=== PATIENT | male | born 1980 | race Caucasian/White ===

== ENCOUNTER → 2024-05-09 08:41 | Outpatient (REF) | payer BC, SELFPAY ==
[2024-05-09 09:31] LABS: % Basophils 0.8 % (0-2); % Immature Granulocytes 0.4 % (0-0.5); % Monocytes 7.7 % (1.7-9.3); % Neutrophils 66.1 % (42.2-75.2); Absolute Eosinophils 0.1 10^3/uL (0-0.7); Absolute Lymphocytes 1.2 10^3/uL (1.2-3.4); Absolute Monocytes 0.4 10^3/uL (0.1-0.6); Absolute Neutrophils 3.2 10^3/uL (1.4-6.5); Hematocrit 45.2 % (39.0-52.0); Mean Corp Hgb Conc. 35.4 g/dL (33.0-37.0); Mean Corpuscular Hgb 31.4 pg (27.0-31.0); Mean Corpuscular Volume 88.8 fL (80.0-94.0); Mean Platelet Volume 9.9 fL (7.4-10.4); Nucleated Red Blood Cells % 0 % (-); Platelet Count 184 10^3/uL (130-400); Red Blood Cell Count 5.09 10^6/uL (4.70-6.10); Red Cell Dist. Width 11.9 % (11.5-14.5); White Blood Cell Count 4.8 10^3/uL (4.8-10.8)
[2024-05-09 10:02] LABS: Urine Albumin Negative (Neg - Trace); Urine Bilirubin Negative (Negative); Urine Character Clear (Clear); Urine Color Yellow; Urine Glucose Negative (Negative); Urine Ketone Negative (Negative); Urine Leukocyte Negative (Negative); Urine Nitrite Negative (Negative); Urine Occult Blood Negative (Negative); Urine Specific Gravity 1.015 (<1.030); Urine Urobilinogen Negative (Neg - 1+)
[2024-05-09 10:09] LABS: ALT (SGPT) 39 U/L (0-50); AST (SGOT) 30 U/L (17-59); Albumin 5.1 g/dl (3.5-5.0); Alkaline Phosphatase 74 U/L (38-126); Blood Urea Nitrogen 16 mg/dl (9-20); Calcium 10.3 mg/dl (8.4-10.2); Carbon Dioxide 28 mmol/L (22-30); Chloride 101 mmol/L (98-107); Glucose 97 mg/dl (70-99); Potassium 4.2 mmol/L (3.5-5.1); Sodium 144 mmol/L (135-145); Total Protein 7.5 g/dl (6.3-8.2); eGFR > 60.00
[2024-05-09 10:33] LABS: TSH Reflex To Free T4 1.78 uIU/ml (0.47-4.68)
[2024-05-09 10:52] LABS: Hepatitis C Antibody Negative (Negative)
== END ==
LOC: REG 08:41
PROVIDERS: ATTENDING PHYSICIAN Internal Medicine Cardiovascular Disease; FAMILY PHYSICIAN Family Medicine
DX: Z13.9 Encounter for screening, unspecified (principal)
CPT/HCPCS: 36415; 80053; 81003; 84443; 85025; 86803

== ENCOUNTER → 2024-05-14 06:43 | Outpatient (REF) | payer BC, SELFPAY ==
[2024-05-14 08:09] LABS: HDL Cholesterol 69 mg/dl; LDL Cholesterol, Calculated 106 mg/dl; Total Cholesterol 199 mg/dl (50-199); Triglyceride 123 mg/dl (10-149); Very Low Density Lipoprotein 24 mg/dl (0-30)
== END ==
LOC: REG 06:43
PROVIDERS: ATTENDING PHYSICIAN Internal Medicine Interventional Cardiology; FAMILY PHYSICIAN Family Medicine
DX: Z13.220 Encounter for screening for lipoid disorders (principal)
CPT/HCPCS: 36415; 80061

== ENCOUNTER 2024-12-16 18:10 | Observation (INO) | payer BC, SELFPAY ==
[2024-12-16] VITALS (18 sets, daily range): BP systolic 134–183; BP diastolic 80–102; BMI 28.6; BMI 27.2
--- NOTE | 2024-12-16 13:23 | ED.CVA ---
History of Present Illness
General
Chief Complaint: CVA/TIA Symptoms
Source: patient
Exam Limitations: none
Time Seen by Provider: 12/16/24 13:22
Onset of Stroke Symptoms
Onset of symptoms known: No
Time pt last seen normal is known: No
History of Present Illness
History of Present Illness:
44-year-old male with history of hypertension [employer] employee here presents from the [employer] when he was working with an episode of time where he was having trouble getting a word out. He has been having palpitations on and off for the past 2
weeks. He states this may have coincided with a trip to [place] where he was drinking alcohol at that trip. He currently denies chest pain. He feels much better since the onset of his symptoms. At some point someone called a stroke alert on him.
He denies headache. He was prescribed amlodipine 5 mg daily but he stopped taking that a couple weeks ago as well. He denies unilateral numbness or weakness.
Phy Exam
Physical Exam
Physical Exam:
General: Well-appearing male no acute respiratory distress
HEENT: Normocephalic atraumatic
Heart: Tachycardic but regular
Lungs: Clear no wheeze
Neurologic exam: Alert and oriented no facial asymmetry no dysarthria or aphasia. No unilateral weakness no drift. Vision intact good sensation bilateral lower extremities
Extremities: No cyanosis or edema
Skin: warm, no rash
Course
Orders/Labs/Results
Orders:
Orders
12/16/24
Electrocardiogram (*1) Stat
Other Reason for Exam: EVAL
Comment: DONE IN [facility]
12/16/24 13:20
Electrocardiogram (*1) Urgent
Reason for Study: Other
Other Reason for Exam: Possible Stroke
Cardiac Monitoring- Treatment ONCE
IV Insert/Care/Rem.- Treatment PRN
Vital Signs As Directed
Frequency: Other
Weight As Directed
Frequency: Once
Comment: ZERO STRETCHER SCALE FOR ACCURATE WEIGHT
12/16/24 13:21
CT HEAD STROKE ALERT W/o Cont Urgent
Comment:
Reason For Exam: aphasia
EKG- Treatment ONCE
12/16/24 13:22
Complete Blood Count/With Diff Urgent
Comprehensive Metabolic Panel Urgent
Troponin I Urgent
12/16/24 13:43
PTT Urgent
Prothrombin Time Urgent
12/16/24 13:46
TSH Reflex To Free T4 Urgent
12/16/24 14:14
CT Head & Neck Angio W/wo IV Urgent
Comment:
Reason For Exam: stenosis
12/16/24 15:13
Urine Drug Abuse Screen Routine
MRI Brain [MR Brain Without Contrast] Routine
Comment:
Reason For Exam: TIA
OK for patient to be off Cardiac Monitoring for MRI: No
Recent pill cam endoscopy?: No
12/16/24 15:22
Hemoglobin A1c [Glycohemoglobin (HgbA1c)] Routine
Lipid Profile [Cardiovascular Evaluation] Routine
Abnormal Lab Results
12/16/24
13:22
MCH 32.1 H pg
(27.0-31.0)
Glucose 109 H mg/dl
(70-99)
ALT 55 H U/L
(0-50)
12/16/24 13:22
12/16/24 13:22
Vital Signs
Initial and Last Documented VS:
Initial Vital Signs
Temp Pulse Resp BP Pulse Ox
98.7 F 102 18 183/102 98
12/16/24 13:31 12/16/24 13:31 12/16/24 13:31 12/16/24 13:31 12/16/24 13:31
Last Documented Vital Signs
Temp Pulse Resp BP Pulse Ox
98.7 F 79 18 154/98 97
12/16/24 13:31 12/16/24 14:45 12/16/24 14:45 12/16/24 14:45 12/16/24 14:45
MDM/Problems Addressed
Differential Diagnosis Includes:
Patient was having trouble speaking earlier today this lasted a couple minutes and resolved. He is back to his baseline. He was having palpitations. A coworker describes that he was very pale during this episode. Currently normal neurologic
exam: Called as a stroke alert seen by neurology at bedside. Currently in CAT scan.
*Critical Care Note
Total Time (30-74mins, 75-104mins- exclusive of procedures): Not Applicable
Update Note
Update Note:
CT scan of head negative for acute finding. Seen by neurology who recommended CT angio of the head and neck. Patient has had no further symptoms since arrival. Blood pressure and heart rate have decreased since arrival. Neurology saw patient and
recommends admission for MRI secondary to episode of aphasia. Not a TNK candidate.
ED Attending Note
-
Portions of this chart may have been created with voice recognition software.� Occasional wrong word or��sound alike� substitutions may have occurred due to the inherent limitations of voice recognition software.
Discharge Plan
Departure
Patient Disposition: Admit
Date of Disposition: 12/16/24
Time of Disposition: 16:12
Presentation/result/management discussed w/ accepting MD/DO: Hospitalist
Discharge Problem:
Episode of aphasia
Referrals:
Vijay Reyna DO [Family Provider] -
Interventions
Interventions:
*Risk Screen - Suicide Last Done: 12/16/24 13:31
*General Assessment Last Done: 12/16/24 13:31
*Neglect/Abuse Screening Last Done: 12/16/24 13:31
*ED- Fall Risk Assessment Last Done: 12/16/24 13:31
*ED COVID-19 Vaccine History Last Done: 12/16/24 13:31
ED- Pulmonary Assessment Last Done: 12/16/24 13:37
ED- Neurological Assessment Last Done: 12/16/24 13:37
ED- Cardiac Assessment Last Done: 12/16/24 13:37
Discharge Date and Time
Print Language: GRENADIAN
--- NOTE | 2024-12-16 13:26 | CON.NEURO ---
Consultation
Order
Date of Consultation: 12/16/24
Requesting Provider:
Reason for Consult: Stroke alert
Called in: 1:12 PM
Neurology Consultation Note.
HPI: This is a 44-year-old man who developed transient expressive language difficulties while at work today. The patient reports experiencing palpitations for the last few weeks. Today, while talking to a colleague, he noticed difficulty getting
words out, which caused him significant anxiety due to concerns about a possible stroke.
Mr. Regalado states that he had been drinking alcohol heavily during a recent trip to [place], which coincided with the onset of his symptoms. The patient reports that he stopped taking his regular medications about a month ago due to 'laziness'.
He denies any current chest pain, weakness or numbness.
Mr. Regalado feels 'a little post-anxious'. No similar episodes in the past
ER VS: 183/102, 102, afebrile
Tele: Tachycardic
EKG: NSR, QTc Int : 449 ms
PDMP:none
Labs: Normal WBCs, platelets, sodium, glucose�109, ALT�55
CT head wo contrast-no acute abnormalities
PMH:HTN, GERD
PSH: Left rotator cuff repair
SH: Works at [employer], social alcohol use
FH: No family history of stroke in the
All:NKDA
ROS: Positive for transient aphasia, palpitations
NIH Stroke Scale
1A Level of Consciousness: 0/3
1B LOC Questions: 0/2
1C LOC Commands: 0/2
2 Best Gaze: 0/2
3 Visual: 0/3
4 Facial Palsy: 0/3
5A Motor Arm LEFT: 0/4
5B Motor Arm RIGHT: 0/4
6A Motor Leg LEFT: 0/4
6B Motor Leg RIGHT: 0/4
7 Limb Ataxia: 0/2
8 Sensory: 0/2
9 Best Language: 0/3
10 Dysarthria: 0/2
11 Extinction/Inattention: 0/2
Total NIHSS: 0
Assessment and Plan:
I. Transient aphasia. Not a candidate for IV TNK due to transient nature of symptoms.
II. Hypertensive emergency
III. Sinus tachycardia
- Continue Telemetry monitoring
- DAPT for 21 days
- Brain MRI without valeria
- Please follow-up result of CTA head and neck
- Please follow-up count, CBC, TFTs, urine tox
- May consider EEG
I personally reviewed all radiology and labs along with past medical records pertinent to current medical problems. Total time spent in patient care is 40 minutes.
Thank you for allowing us to participate in the care of this patient. We will continue to follow. Please do not hesitate to contact us with any questions or concerns.
Subjective/Objective
Subjective Data
Date of Service: December 16, 2024
Objective Data
Patient Allergies
No Known Allergies Allergy (Unverified 08/16/20 14:54)
[2024-12-16 13:33] LABS: % Basophils 0.5 % (0-2); % Eosinophils 0.5 % (0-6); % Immature Granulocytes 0.4 % (0-0.5); % Lymphocytes 24.1 % (20.5-51.1); % Monocytes 6.8 % (1.7-9.3); % Neutrophils 67.7 % (42.2-75.2); Absolute Lymphocytes 1.9 10^3/uL (1.2-3.4); Absolute Monocytes 0.5 10^3/uL (0.1-0.6); Absolute Neutrophils 5.3 10^3/uL (1.4-6.5); Hematocrit 46.8 % (39.0-52.0); Hemoglobin 16.8 g/dL (13.0-18.0); Mean Corp Hgb Conc. 35.9 g/dL (33.0-37.0); Mean Corpuscular Hgb 32.1 pg (27.0-31.0); Mean Corpuscular Volume 89.3 fL (80.0-94.0); Mean Platelet Volume 9.1 fL (7.4-10.4); Nucleated Red Blood Cells % 0 % (-); Platelet Count 232 10^3/uL (130-400); Red Blood Cell Count 5.24 10^6/uL (4.70-6.10); Red Cell Dist. Width 12.8 % (11.5-14.5); White Blood Cell Count 7.8 10^3/uL (4.8-10.8)
[2024-12-16 13:44] LABS: ALT (SGPT) 55 U/L (0-50); AST (SGOT) 28 U/L (17-59); Albumin 4.7 g/dl (3.5-5.0); Alkaline Phosphatase 72 U/L (38-126); Blood Urea Nitrogen 18 mg/dl (9-20); Calcium 10.1 mg/dl (8.4-10.2); Carbon Dioxide 26 mmol/L (22-30); Chloride 103 mmol/L (98-107); Estimated Creatinine Clearance 110 ml/min; Glucose 109 mg/dl (70-99); Potassium 3.6 mmol/L (3.5-5.1); Sodium 139 mmol/L (135-145); Total Bilirubin 0.9 mg/dl (0.2-1.3); Total Protein 7.2 g/dl (6.3-8.2); eGFR > 60.00
[2024-12-16 13:55] LABS: Troponin I < 0.012 ng/ml
[2024-12-16 14:19] LABS: INR 0.99; PT 13.4 Sec (11.4-14.6)
[2024-12-16 14:20] LABS: APTT 28.1 Sec (23.4-35.0)
[2024-12-16 14:53] LABS: TSH Reflex To Free T4 2.04 uIU/ml (0.47-4.68)
[2024-12-16 15:50] LABS: HDL Cholesterol 64 mg/dl; LDL Cholesterol, Calculated 91 mg/dl; Total Cholesterol 183 mg/dl (50-199); Triglyceride 141 mg/dl (10-149); Very Low Density Lipoprotein 28 mg/dl (0-30)
--- NOTE | 2024-12-16 17:25 | HPS.HSE ---
Family Physician
-
Family Physician: Vijay Reyna
Chief Complaint
-
Expressive Aphasia
History of Present Illness
Patient is a 44 y/o male past medical history of hypertension who presents with episode of expressive aphasia. Will speaking with a colleague today he developed a transient episode of expressive aphasia that was very brief lasting about 5 seconds.
Just after the event he was found to have very elevated blood pressure SBP>200. He reports feeling very anxious following the event. Patient reports he previously was prescribed amlodipine but stopped taking it about 6 weeks ago. He reports daily
palpitations for the last two weeks since returning from a trip to [place]. He denies chest pain. He denies focal numbness, tingling or weakness.
Medical History
Past Medical History
Past Medical History: Reports Other
Additional Past Medical History:
Essential Hypertension
Past Surgical History: Reports Other
Additional Past Surgical History:
Left Rotator Cuff
Social History
Tobacco: Former Smoker (Quit about 15-20 years ago (5 pack year history))
Alcohol: Occasional
Drug: None
Family History
Family History: Other (No family history of stroke)
Allergies / Home Medications
Allergies reflects when Allergies were last updated in [email or web address].
Home Medications with original date entered in [email or web address]
Allergy/Medication List:
Allergies
Allergy/AdvReac Type Severity Reaction Status Date / Time
No Known Allergies Allergy Verified 12/16/24 13:41
Home Medications
No Meds [No Current Medications] 12/16/24
Review of Systems
-
A 12 point ROS was completed and negative except as noted: Yes
Constitutional: Denies Fever
Respiratory: Denies Cough or Trouble Breathing
Cardiac: Reports Palpitations
Abdomen/GI: Denies Abdominal Pain, Nausea, Vomiting or Diarrhea
Neurological: Reports See HPI
Physical Exam
Vital Signs
Vital Signs
Temp Pulse Resp BP Pulse Ox
98.7 F 80 19 134/94 97
12/16/24 13:31 12/16/24 17:15 12/16/24 17:15 12/16/24 17:15 12/16/24 16:15
Physical Exam
General: Comfortable and Conversant
HEENT: Anicteric and Moist mucous membranes
Respiratory: Clear and Non Labored Respirations
Cardiac: S1/S2 and Regular Rhythm
GI: Soft and Non Tender
Rectal: Deferred by Provider
Musculoskeletal: No Clubbing and No Cyanosis
Skin: Warm and Dry
Neuro: Awake, Alert, Oriented and No Motor Deficits; No Slurred Speech or Facial Droop
Psych: Anxious
Laboratory Results
-
12/16/24 13:22
12/16/24 13:22
Laboratory Results
PT 13.4 Sec (11.4-14.6) 12/16/24 13:43
INR 0.99 12/16/24 13:43
APTT 28.1 Sec (23.4-35.0) 12/16/24 13:43
Total Bilirubin 0.9 mg/dl (0.2-1.3) 12/16/24 13:22
AST 28 U/L (17-59) 12/16/24 13:22
ALT 55 U/L (0-50) H 12/16/24 13:22
Alkaline Phosphatase 72 U/L (38-126) 12/16/24 13:22
Troponin I < 0.012 ng/ml 12/16/24 13:[address]:
No acute intracranial abnormality.
Head/Neck CT:
No significant vascular occlusion, aneurysm or dissection.
Data Reviewed
-
CT Scan: Report Reviewed by me
Lab Data: Labs Reviewed by me
Impression/Plan
-
Transient Expressive Aphasia
-Neurology Consulted
-Start Aspirin and Plavix
-Check Brain MRI
-Check HgbA1c and Lipid Panel
Uncontrolled Hypertension
-BP improving without intervention
-Plan to resume amlodipine 5mg Daily 24 hour after onset of symptoms to allow for permissive hypertension in setting of possible TIA/CVA
Palpitations
-Monitor on Telemetry
Anxiety
-Consider psych referral as outpatient
DVT proph: SCDs
Code Status: Full Code
--- NOTE | 2024-12-16 17:44 | W.PN.UPDATE ---
Update Note
Progress Note Update
I saw and examined the patient.
The MACHINIST JOB SETTER or PA's note was reviewed and I agree with the note.
Comment:
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
difficulty getting words out.� This lasted very briefly, and only could not get out 1 sentence. This subsequently caused sense of anxiety for possible stroke.� Patient does acknowledge having palpitations for the last few weeks.� Of note had a
recent trip to [place], was drinking alcohol heavily.� Patient otherwise denies fever, chills, nausea, vomiting, dysuria.� Patient's blood pressure 183/102, pulse 102, afebrile initially in the ED.� Upon admission blood pressure 134/94, pulse 80,
respiratory rate 19, temperature 98.7.� LDL 91, TSH within normal limits.� CT head and neck with no significant vascular occlusion, aneurysm or dissection.� CT head with no acute intracranial abnormality.� Plan�neurology consult.� Hemoglobin A1c.�
Continue DAPT for 21 days.� Continue telemetry monitoring.� MRI brain without valeria.� May consider EEG as per neurology. Trops. Suspect consideration of anxiety that has lead to symptoms.
[2024-12-16 17:59] LABS: Magnesium 2.2 mg/dl (1.6-2.3)
[2024-12-16] MEDS: PLAVIX 75 MG PO (18:28)
[2024-12-16 20:28] LABS: Troponin I 0.019 ng/ml
--- NOTE | 2024-12-16 20:47 | PTCARENOTE ---
Received patient from ED. SR on the monitor, HR in the 70s. VSS on room air. Alert and oriented. NIH 0. Oriented pt to room. No complaints from pt at this time, call duran within reach.
[2024-12-17 02:03] VITALS: BP 121/83
[2024-12-17 03:16] LABS: Blood Urea Nitrogen 15 mg/dl (9-20); Calcium 9.4 mg/dl (8.4-10.2); Carbon Dioxide 21 mmol/L (22-30); Chloride 106 mmol/L (98-107); Estimated Creatinine Clearance > 125 ml/min; Glucose 94 mg/dl (70-99); Potassium 3.7 mmol/L (3.5-5.1); Sodium 140 mmol/L (135-145); eGFR > 60.00
[2024-12-17 03:29] LABS: Troponin I < 0.012 ng/ml
[2024-12-17 06:55] VITALS: BP 145/104
[2024-12-17 07:45] VITALS: BP 144/110
[2024-12-17 07:47] VITALS: BP 160/96
[2024-12-17] MEDS: PLAVIX 75 MG PO (07:53)
[2024-12-17] MEDS: ASPIR LOW (ENTERIC COATED) 81 MG PO (07:53)
--- NOTE | 2024-12-17 08:05 | PTCARENOTE ---
Assumed plan of care of pt. BP 141/110, 160/96. Pt asymptomatic. Neuro checks negative. Will notify MD of current vitals. Will monitor.
[2024-12-17] MEDS: NORVASC 5 MG PO (08:48)
[2024-12-17 08:50] VITALS: BP 143/87
[2024-12-17 09:15] VITALS: BP 143/87; PULSE 72
--- NOTE | 2024-12-17 09:33 | PTOTSP ---
PATIENT ABLE TO MOBILIZE INDPENDENTLY ON LEVEL SURFACES AND ELEVATIONS WITHOUT COMPLAINTS OF DIZZINESS OR PALPITATIONS. NO DEFICITS NOTED. PATIENT REQUIRING NO FURTHER ACUTE CARE SKILLED P.T. SERVICES AT THIS TIME.
--- NOTE | 2024-12-17 09:49 | PTOTSP ---
Speech Therapy Evaluation:
Pt presents with functional oropharyngeal swallow. No overt s/sx of aspiration across trials. No hx of ST, dysphagia, or PNA. Head/Brain imaging negative. Pt on room air, WBC WNL, and pt passed 3oz swallow screen.
Recommend:
1. Continue IDDSI Level 7 (regular) solids and thin liquids
2. Medications as tolerated
3. General aspiration and reflux precautions
4. LIBRARY CIRCULATION TECHNICIAN to s/o - please reconsult if indicated
--- NOTE | 2024-12-17 11:03 | W.PN.HOSP.TC ---
Today's Communication/Plan
-
asa
amlodipine
f/u neuro, pcp, psych outpatient
Assessment / Plan
Assessment / Plan
Physical Exam
General: Comfortable and Conversant
HEENT: Anicteric and Moist mucous membranes
Respiratory: Clear and Non Labored Respirations
Cardiac: S1/S2 and Regular Rhythm
GI: Soft and Non Tender
Rectal: Deferred by Provider
Musculoskeletal: No Clubbing and No Cyanosis
Skin: Warm and Dry
Neuro: Awake, Alert, Oriented and No Motor Deficits; No Slurred Speech or Facial Droop
Psych: Anxious
Transient Expressive Aphasia
-N?TIA v Anxiety
- MRI negative for acute pathology
-Can continue ASA for now until neuro follow up in setting of hypertension
-F/u LDL outpatient
- F/u neurology outpatient
-a1c 5
Uncontrolled Hypertension, non compliant
-Restart amlodipine
Anxiety
f/u with psych outpatient
Palpitations
-resolved
-probable anxiety
-see as above
DVT proph: SCDs
Code Status: Full Code
More than 30 minutes spent in discharge including
Final examination of the patient
Summarizing hospital stay
Instructions for continuing care to all relevant caregivers
Preparation of discharge records, prescriptions, and referral forms
Total time spent (in minutes): 36
Anticipated Discharge: Today
Subjective/Interval History
-
Date of Service: December 17, 2024
no acute events; hr and bp improved
Objective Data
-
Labs:
Laboratory Results
12/17/24
02:09
Sodium 140
Potassium 3.7
Chloride 106
Carbon Dioxide 21 L
BUN 15
Creatinine 0.7
Glucose 94
Calcium 9.4
Vital Signs:
Vital Signs
Temp Pulse Resp BP Pulse Ox
98.3 F 80 18 143/87 98
12/17/24 07:59 12/17/24 08:48 12/17/24 07:59 12/17/24 08:48 12/17/24 07:59
Review of Systems
-
History Source: Patient
All other systems: Not reviewed unless documented
Data Reviewed
-
CT Scan: Report Reviewed by me
MRI: Report Reviewed by me
Labs: Labs Reviewed by me
--- NOTE | 2024-12-17 11:11 | W.DS.TRANS ---
DC Summary - Quality Assurance Engineer
-
Discharge Instructions:
Discharge Diagnosis/Procedures TIA v anxiety
Diet Low Cholesterol,Low Fat
Activity As tolerated
Blood Work LFTs in 1 week with pcp (had mildly elevated ALT
); also can follow up LDL outpatient
Instructions:
Stand-Alone Forms:
Changes to Home Medications: Yes
Discharge Medications:
DC Medications w/original date entered in [employer]
amlodipine 5 mg tablet 5 mg PO DAILY 30 days #30 tabs 12/17/24
aspirin 81 mg tablet,delayed release 81 mg PO DAILY 30 days #30 tabs 12/17/24
Home Medication Changes
amlodipine 5 mg tablet 5 mg PO DAILY 30 days #30 tabs 12/17/24
aspirin 81 mg tablet,delayed release 81 mg PO DAILY 30 days #30 tabs 12/17/24
Pending Results: No
--- NOTE | 2024-12-17 11:11 | CM ---
CM following for DC planning needs.
Met w/ patient at bedside to complete initial assessment.
Pt. resides w/ spouse + family. He is completely indep. prior to admission, works as a Tab Cutter RN @ .
Reviewed OBS status; OBS letter provided.
DC plan is for home, no needs.
== END 2024-12-17 11:55 | disposition home or self-care (01) ==
LOC: IVU 18:10
PROVIDERS: Physician Assistant; Physician Assistant Medical; ADMITTING PHYSICIAN Internal Medicine; EMERGENCY PHYSICIAN Student in an Organized Health Care Education/Training Program; FAMILY PHYSICIAN Family Medicine; OTHER PHYSICIAN Psychiatry & Neurology Neurology
DX: G45.9 Transient cerebral ischemic attack, unspecified (principal); R47.01 Aphasia; I16.1 Hypertensive emergency; Z87.891 Personal history of nicotine dependence; I10 Essential (primary) hypertension; R00.2 Palpitations; F41.9 Anxiety disorder, unspecified
CPT/HCPCS: 70450; 70496; 70498; 70551; 80048; 80053; 80061; 83036; 83735; 84443; 84484; 85025; 85610; 85730; 92610; 93005; 97162; 97166; 99285; Q9967

== ENCOUNTER → 2025-05-15 10:04 | Outpatient (REF) | payer BC, SELFPAY ==
[2025-05-15 10:35] LABS: Urine Character Clear (Clear)
[2025-05-15 10:45] LABS: Hematocrit 46.1 % (39.0-52.0); Hemoglobin 16.3 g/dL (13.0-18.0); Mean Corp Hgb Conc. 35.4 g/dL (33.0-37.0); Mean Corpuscular Volume 88.1 fL (80.0-94.0); Nucleated Red Blood Cells % 0 % (-); Platelet Count 187 10^3/uL (130-400); Red Cell Dist. Width 12.1 % (11.5-14.5); Urine Red Blood Cell 0-2 /HPF (0-2); Urine Squamous Cell 0-2 /LPF (Few); Urine White Cell 0-2 /HPF (0-5)
[2025-05-15 11:20] LABS: Blood Urea Nitrogen 16 mg/dl (9-20); Calcium 10.4 mg/dl (8.4-10.2); Carbon Dioxide 26 mmol/L (22-30); Chloride 104 mmol/L (98-107); Glucose 95 mg/dl (70-99); HDL Cholesterol 67 mg/dl; LDL Cholesterol, Calculated 114 mg/dl; Potassium 4.7 mmol/L (3.5-5.1); Sodium 139 mmol/L (135-145); Very Low Density Lipoprotein 9 mg/dl (0-30); eGFR > 60.00
[2025-05-15 11:39] LABS: TSH 1.82 uIU/ml (0.47-4.68)
== END ==
LOC: REG 10:04
PROVIDERS: ATTENDING PHYSICIAN Nurse Practitioner; FAMILY PHYSICIAN Family Medicine
DX: I10 Essential (primary) hypertension (principal)
CPT/HCPCS: 36415; 80048; 80061; 81003; 81015; 84443; 85025

== ENCOUNTER → 2025-05-27 07:23 | Outpatient (REF) | payer BC, SELFPAY ==
[2025-05-27 09:10] LABS: Vitamin D, 25-OH*** 49.9 ng/mL (30-80)
[2025-05-27 09:42] LABS: Calcium 10.0 mg/dl (8.4-10.2)
== END ==
LOC: REG 07:23
PROVIDERS: ATTENDING PHYSICIAN Family Medicine
DX: E83.52 Hypercalcemia (principal)
CPT/HCPCS: 36415; 82306; 83970

== ENCOUNTER → 2025-06-03 01:00 | Outpatient (REF) | payer BC, SELFPAY | LOC: CLAB 01:00 | PROVIDERS: ATTENDING PHYSICIAN Surgery | DX: D17.1 Benign lipomatous neoplasm of skin and subcutaneous tissue of trunk (principal) | CPT/HCPCS: 88304 ==